=== PATIENT | female | born 1960 | race African-American/Black ===

== ENCOUNTER → 2017-09-05 | Outpatient (CLI) | payer OTHER ==
[2016-04-17 02:10] VITALS: BP 157/93
--- NOTE | 2017-09-13 12:57 | MG ---
Examination: Bilateral screening mammogram. Clinical history: Routine screening. Technique: Digital CC and MLO views of both breasts were obtained. Computer aided detection analysis was performed and used during the interpretation. Comparison: 07/20/2016. Findings: The breasts are composed of scattered fibroglandular densities. A skin mole is present overlying the right breast. There is a new 9 mm oval density present in the upper outer aspect of the right breast in the middle depth. Additional imaging evaluation is recommended, with spot compression magnification views in the CC and MLO projections, a lateral view of the right breast and a right breast ultrasound. No suspicious mass, area of architectural distortion or suspicious cluster of microcalcifications is noted in the left breast. Impression: 1. New density in the right breast, as described above. BI-RADS category 0 (ZERO) - ASSESSMENT INCOMPLETE; ADDITIONAL IMAGING IS NEEDED. Recommend immediate recall for additional imaging evaluation, as described above. Diagnostic CAD was utilized and reviewed. * 0 (ZERO) - ASSESSMENT INCOMPLETE; ADDITIONAL IMAGING IS NEEDED. * 0C - ASSESSMENT INCOMPLETE, NEEDS ADDITIONAL IMAGING EVALUATION AND/OR PRIOR MAMMOGRAMS FOR COMPARI SON. * 1/1 (ONE) - NEGATIVE. * 2/II (TWO) - BENIGN FINDINGS. * 3/III (THREE) - PROBABLY BENIGN FINDING; SHORT INTERVAL FOLLOW-UP SUGGESTED. * 4/IV (FOUR) - SUSPICIOUS ABNORMALITY; BIOPSY SHOULD BE CONSIDERED. * 5/V - HIGHLY SUSPICIOUS OF MALIGNANCY; BIOPSY SHOULD BE PERFORMED. * 6/IV - KNOWN BIOPSY PROVEN MALIGNANCY-APPROPRIATE ACTION SHOULD BE TAKEN. A NEGATIVE X-RAY REPORT SHOULD NOT DELAY BIOPSY IF A DOMINANT OR CLINICALLY SUSPICIOUS MASS IS PRESENT; 4 TO 8 PERCENT OF CANCERS ARE NOT IDENTIFIED BY X-RAY. A NEGATIVE REPORT MAY REINFORCE THE CLINICAL IMPRESSION. ADENOSIS AND DENSE BREASTS MAY OBSCURE AN UNDERLYING NEOPLASM. Reported By:
== END ==
LOC: RAD 10:02
PROVIDERS: ATTEND Obstetrics & Gynecology
DX: Z12.31 Encounter for screening mammogram for malignant neoplasm of breast (principal)
CPT/HCPCS: 77067

== ENCOUNTER → 2017-10-16 | Outpatient (CLI) | payer OTHER ==
[2016-04-17 02:10] VITALS: BP 157/93
--- NOTE | 2017-10-16 15:38 | MG ---
HISTORY: Right breast nodule Comparison: 09/05/2017 Diagnostic right mammogram FINDINGS: Spot compression CC and MLO views of the right breast were obtained as well as mediolateral view. The re is a persistent, partially obscured nodule located within the upper-outer quadrant of the right br east mid depth. Targeted sonography of the right breast demonstrates an anechoic cystic lesion locate d at the 10 o'clock position, approximately 6 cm from the nipple and likely corresponding to mammogra phic nodular density. The parenchymal cyst measures approximately 7 mm x 5 mm by 6 mm in greatest dim ensions. There is increased through transmission and no internal Doppler flow. However, there appears to be at least 1 internal septation as well as a small amount of internal debris. No suspicious soft tissue nodularity or wall thickening is appreciated. No significant architectural distortion, mass o r clustered microcalcifications can be observed to suggest malignancy. IMPRESSION: 1. Right breast nodule corresponding to a mildly complicated parenchymal cyst as described above. Alt cristiane favored to most likely be benign in nature, given its mildly complicated features, short interv al sonographic follow-up in 6 months is recommended in order to document stability. ACR CATEGORY 3 - probably benign findings; short interval follow-up suggested Targeted sonography of the right breast recommended in 6 months Diagnostic CAD was utilized and reviewed. * 0 (ZERO) - ASSESSMENT INCOMPLETE; ADDITIONAL IMAGING IS NEEDED. * 1/1 (ONE) - NEGATIVE. * 2/II (TWO) - BENIGN FINDINGS. * 3/III (THREE) - PROBABLY BENIGN FINDING; SHORT INTERVAL FOLLOW-UP SUGGESTED. * 4/IV (FOUR) - SUSPICIOUS ABNORMALITY; BIOPSY SHOULD BE CONSIDERED. * 5/V - HIGHLY SUSPICIOUS OF MALIGNANCY; BIOPSY SHOULD BE PERFORMED. A NEGATIVE X-RAY REPORT SHOULD NOT DELAY BIOPSY IF A DOMINANT OR CLINICALLY SUSPICIOUS MASS IS PRESENT; 4 TO 8 PERCENT OF CANCERS ARE NOT IDENTIFIED BY X-RAY. A NEGA TIVE REPORT MAY REINFORCE THE CLINICAL IMPRESSION. ADENOSIS AND DENSE BREASTS MAY OBSCURE AN UNDERLY ING NEOPLASM. Reported By:
--- NOTE | 2017-10-16 15:41 | US ---
HISTORY: Right breast nodule Study: Right breast sonogram Comparison: Diagnostic mammogram performed on same day Technique: Multiple grayscale and color flow images of the right breast were obtained. Findings: Imaging of the right breast demonstrates a smoothly marginated anechoic parenchymal cyst located at t he 10 o'clock position, approximately 6 cm from the nipple. The cyst is horizontally oriented and lik derrek corresponds to the mammographic nodular density. This cyst measures approximately 5 mm x 7 mm x 6 mm in greatest dimensions. There is increased through transmission and no internal Doppler flow. At least 1 internal septation and a small amount of internal debris is identified within the parenchymal cyst. Although no suspicious soft tissue nodularity or wall thickening is appreciated, given its mil dly complicated features, short interval sonographic follow-up in 6 months is recommended in order to document stability. IMPRESSION: 1. Mildly complicated parenchymal cyst corresponding to mammographic nodular density of the right nina ast. Short interval sonographic follow-up in 6 months is recommended in order to document stability. Please see diagnostic mammogram report as well. Reported By:
== END ==
LOC: RAD 13:50
PROVIDERS: ATTEND Obstetrics & Gynecology
DX: R92.8 Other abnormal and inconclusive findings on diagnostic imaging of breast (principal)
CPT/HCPCS: 76642; 77065

== ENCOUNTER 2017-10-21 20:13 | Emergency (ER) | payer OTHER ==
[2017-10-21 20:19] VITALS: BMI 31.7
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
[2017-10-21] MEDS ORDERED: MOTRIN TAB 600 MG PO ONE ×2 (23:05→23:08)
[2017-10-21 23:23] VITALS: BP 136/86
== END 2017-10-21 23:18 | disposition home or self-care (01) ==
LOC: ER 20:13
DX: S40.012A Contusion of left shoulder, initial encounter (principal); V87.7XXA Person injured in collision between other specified motor vehicles (traffic), initial encounter
CPT/HCPCS: 73000; 73030; 99282; 99283